=== PATIENT | female | born 1975 | race African-American/Black ===

== ENCOUNTER 2018-03-06 14:42 | Emergency (ER) | payer OTHER, SELFPAY ==
[2018-03-06 14:50] VITALS: BP 142/79; PULSE 75; RESP 16; TEMP 36.7; O2SAT 100
--- NOTE | 2018-03-06 14:52 | ED.CHESTPAIN ---
HPI - Chest Pain General Chief Complaint: Chest Pain Stated Complaint: chest pain x3wks Time Seen by Provider: 03/06/18 14:52 Source: patient Mode of arrival: ambulatory Limitations: no limitations History of Present Illness HPI narrative: 42-year-old healthy female that is a nonsmoker here for complaint of chest pain over the past 3 weeks. She denies any trauma to the chest area. She states she has increased chest pain with movement of the shoulders sometimes. She denies any nausea vomiting. No shortness of breath. No diaphoresis. She was seen at [facility] ER approximately 1 week ago with diagnosis of acid reflux and was placed on omeprazole. She has been using the a map was all and states that her symptoms have not resolved. She denies any others concerns or complaints at this time. She is ambulatory into the emergency room. No acute distress. No cough. Related Data Home Medications Medication Instructions Recorded Confirmed omeprazole 20 mg PO DAILY 03/06/18 03/06/18 Allergies Allergy/AdvReac Type Severity Reaction Status Date / Time naproxen Allergy Mild Rash Verified 03/06/18 14:55 Review of Systems Constitutional Denies chills, Denies fatigue, Denies fever(s), Denies lethargy and Denies weakness Eyes Denies change in vision, Denies eye discharge, Denies irritation and Denies loss of vision ENT Ears, Nose, Mouth, and Throat: Denies change in voice, Denies neck pain and Denies sore throat Cardiovascular Denies dyspnea and Denies dyspnea on exertion Comments: Sternal pain Respiratory Denies cough, Denies dyspnea, Denies dyspnea on exertion and Denies wheezing Gastrointestinal Gastrointestinal: Denies abdominal pain, Denies change in bowel habits, Denies diarrhea, Denies nausea and Denies vomiting Genitourinary Denies hematuria, Denies flank pain, Denies urinary incontinence and Denies urinary urgency Musculoskeletal Denies neck pain Integumentary/Breasts Denies pruritus, Denies erythema, Denies rash and Denies wounds Neurologic Denies loss of vision and Denies weakness Endocrine Denies fatigue and Denies flushing Allergic/Immunologic Denies wheezing [facility] Social History Smoking Status: Never smoker Exam Initial Vital Signs Initial Vital Signs: Vital Signs Temperature 98.1 F 03/06/18 14:50 Pulse Rate 75 03/06/18 14:50 Respiratory Rate 16 03/06/18 14:50 Blood Pressure 142/79 H 03/06/18 14:50 Pulse Oximetry 100 03/06/18 14:50 Const General: cooperative and well developed Nutritional Appearance: well nourished Orientation: alert, awake, oriented x3 and not confused [facility] Mouth: oral mucosae normal, oropharynx normal and moist mucous membranes Eyes Conjunctivae: conjunctivae normal Sclera: sclerae normal Pupils: PERRL EOM: EOM intact bilaterally Neck Neck: normal visual inspection, trachea midline, No lymphadenopathy, No midline deformity and No JVD Lymphatic: No lymphedema Other: T Chest Chest: normal inspection of the chest Other: tenderness on palpation to the anterior chest wall in the sternal area Resp Effort & Inspection: normal respiratory effort, able to speak in complete sentences, no respiratory distress and no use of accessory muscles Auscultation: clear to auscultation bilaterally, no rales, no rhonchi and no wheezes Cardio Rate: regular rate Rhythm: regular rhythm Heart Sounds: no click, no gallops, no murmurs and no rubs Pulses: normal peripheral pulses GI Inspection: non-distended Palpation: soft, no hepatosplenomegaly, No guarding, No pulsatile mass and No tender Auscultation: normal bowel sounds Skin General: no rashes or lesions noted, No jaundice and No petechiae Neuro General: alert, oriented x3, gait normal and no focal motor deficits Speech: speech normal Scores HEART Score Heart Score history: Slightly Suspicious Heart Score EKG: Normal Heart Score Age: < 45 years old Heart Score risk factors: No known risk factors Heart Score troponin: < or = to normal limit Heart Score Total: 0 Course Orders Ordered: ED Orders 03/06/18 15:01 EKG-12 Lead Stat 03/06/18 15:12 XR chest 1V Stat EKG-12 Lead Stat 03/06/18 15:15 Complete Blood Count AUTO DIFF Stat Comprehensive Metabolic Panel Stat Troponin & CK Cardiac Panel Stat Vital Signs - 8 hr 03/06/18 14:50 03/06/18 15:07 03/06/18 15:40 Temperature 98.1 F Pulse Rate 75 71 71 Respiratory Rate 16 18 Blood Pressure 142/79 H Blood Pressure [Left Arm] 122/59 L 115/61 Pulse Oximetry 100 99 100 03/06/18 16:30 03/06/18 17:30 Temperature Pulse Rate 74 71 Respiratory Rate 17 19 Blood Pressure 119/69 Blood Pressure [Left Arm] 116/66 119/69 Pulse Oximetry 99 99 MDM - Chest Pain Lab Data Result diagrams: 03/06/18 15:15 03/06/18 15:15 Lab Results 03/06/18 03/06/18 Range/Units 15:15 15:15 WBC 9.9 (4.5-11.0) X10^3/uL RBC 4.29 (4.0-5.2) X10^6/uL Hgb 11.6 L (12.0-16.0) g/dL Hct 35.0 L (36-46) % MCV 81.6 (80-100) fL MCH 27.1 (26-34) PG MCHC 33.2 (30-36) % RDW 14.8 (11.6-14.8) % Plt Count 261 (150-400) X10^3/uL Neut % (Auto) 71.9 (50-75) % Lymph % (Auto) 19.5 L (25-40) % [place] % (Auto) 7.0 (3-14) % Eos % (Auto) 1.5 L (2-4) % Baso % (Auto) 0.1 (0-2) % Neut # (Auto) 7100 H (5145-2966) /uL Sodium 143 (137-145) mmol/L Potassium 3.8 (3.4-5.1) mmol/L Chloride 103 (98-107) mmol/L Carbon Dioxide 31 (22-32) mmol/L BUN 13 (7-17) mg/dL Creatinine 0.60 (0.52-1.04) mg/dL Estimated GFR > 60.0 (>60) mL/min BUN/Creatinine Ratio 21.7 (6-22) Glucose 127 H (70-100) mg/dL Calcium 10.0 (8.4-10.2) mg/dL Total Bilirubin 0.4 (0.2-1.3) mg/dL AST 28 (14-36) IU/L ALT 30 (9-52) IU/L Alkaline Phosphatase 82 (38-126) U/L Total Creatine Kinase 101 (30-135) U/L CK-MB (CK-2) 0.54 (<2.37) ng/mL CK-MB (CK-2) Rel Index 0.5 L (1.5-5.0) % Troponin I < 0.012 (0.01-0.034) ng/mL Total Protein 7.7 (6.3-8.2) g/dL Albumin 4.1 (3.5-5.0) g/dL Globulin 3.6 (1.7-4.1) g/dL Albumin/Globulin Ratio 1.1 (1.0-2.8) Imaging Data Chest x-ray: Radiologist's impression: [address] [address] XRay Report Signed Patient: Nain Canales#: [id number] : 1975Acct:[id number] Age/Sex: 42 / FDate of Service: 03/06/18 Loc: ED Accession Number: [id number] Procedure: XR chest 1V Ordering Provider: Ronal Galvin PROCEDURE: XR CHEST 1V INDICATIONS: Chest pain TECHNIQUE: One view of the chest was acquired. COMPARISON: None. FINDINGS: Surgical changes and devices: None. Lungs and pleura: No pleural effusions or pneumothorax. Lungs are clear. Mediastinum: Mediastinal contours appear normal. Heart size is normal. Bones and chest wall: No suspicious bony lesions. Overlying soft tissues appear unremarkable. IMPRESSION: No acute pulmonary process. Dictated by: Barbara Trujillo M.D. on 03/06/2018 at 16:39 Approved by: Barbara Trujillo M.D. on 03/06/2018 at 16:40 ECG Data Interpretation: EKG shows normal sinus rhythm with no ST elevation or depression. No ectopy. Ventricular rate of 70. Pr interval of 198. QRS duration of 85. QT of 300. MDM Narrative Medical decision making narrative: EKG shows sinus rhythm with no ST elevation or depression. No ectopy. Chest x-ray was obtained was unremarkable. CBC Chem panel was obtained was also unremarkable. Cardiac enzymes were obtained and were negative. Signs and symptoms presents as chest wall pain/costochondritis. [id number] ibuprofen as needed for any discomfort. Follow up with primary care provider next week for re-evaluation. For any worsening symptoms return to the emergency room. Rest area. Discharge Plan Departure Patient Disposition: Home Clinical Impression: Costalchondritis Discharge Date/Time: 03/06/18 17:31 Interventions: ED Discharge Assessment Last Done: 03/06/18 17:30 Instructions: DI for Costochondritis Activity Restrictions/Additional Instructions: Laboratory results EKG and chest x-ray were obtained today and were negative. Signs and symptoms presents as chest wall pain/costochondritis. Use [id number] ibuprofen as needed for any discomfort. Rest area. Follow up with her primary care provider next week. For any worsening symptoms return to the emergency room. Prescriptions: No Action omeprazole 20 mg capsule,delayed release(DR/EC) 20 mg PO DAILY RF: 0 Referrals: [facility] [Provider Group]
[2018-03-06 15:07] VITALS: BP 122/59; PULSE 71; RESP 17; O2SAT 99
--- NOTE | 2018-03-06 15:12 | DI.RAD.S_ITS ---
PROCEDURE: XR CHEST 1V INDICATIONS: Chest pain TECHNIQUE: One view of the chest was acquired. COMPARISON: None. FINDINGS: Surgical changes and devices: None. Lungs and pleura: No pleural effusions or pneumothorax. Lungs are clear. Mediastinum: Mediastinal contours appear normal. Heart size is normal. Bones and chest wall: No suspicious bony lesions. Overlying soft tissues appear unremarkable. IMPRESSION: No acute pulmonary process. Dictated by: Barbara Trujillo M.D. on 03/06/2018 at 16:39 Approved by: Barbara Trujillo M.D. on 03/06/2018 at 16:40
[2018-03-06 15:24] LABS: Add Manual Diff / Slide Review NO; Basophils Percent Auto 0.1 % (0-2); Eosinophils Percent Auto 1.5 % (2-4); Hemoglobin 11.6 g/dL (12.0-16.0); Lymphocytes Percent Auto 19.5 % (25-40); Mean Corpuscular HGB Conc 33.2 % (30-36); Mean Corpuscular Hemoglobin 27.1 PG (26-34); Mean Corpuscular Volume 81.6 fL (80-100); Neutrophils Absolute Auto 7100 /uL (3000-5900); Neutrophils Percent Auto 71.9 % (50-75); Platelet Count 261 X10^3/uL (150-400); Red Blood Cell Count 4.29 X10^6/uL (4.0-5.2); Red Cell Distribution Width 14.8 % (11.6-14.8); White Blood Cell Count 9.9 X10^3/uL (4.5-11.0)
[2018-03-06 15:36] LABS: Alanine Aminotransferase 30 IU/L (9-52); Albumin 4.1 g/dL (3.5-5.0); Albumin Globulin Ratio 1.1 (1.0-2.8); Alkaline Phosphatase 82 U/L (38-126); Aspartate Aminotransferase 28 IU/L (14-36); BUN Creatinine Ratio 21.7 (6-22); Bilirubin Total 0.4 mg/dL (0.2-1.3); Blood Urea Nitrogen 13 mg/dL (7-17); Carbon Dioxide 31 mmol/L (22-32); Chloride 103 mmol/L (98-107); Creatine Kinase 101 U/L (30-135); Estimated Glomerular Filt Rate > 60.0 mL/min (>60); Globulin 3.6 g/dL (1.7-4.1); Glucose 127 mg/dL (70-100); HEMOLYSIS < 15 (0-50); Potassium 3.8 mmol/L (3.4-5.1); Sodium 143 mmol/L (137-145); Total Protein 7.7 g/dL (6.3-8.2)
[2018-03-06 15:40] VITALS: BP 115/61; PULSE 71; RESP 18; O2SAT 100
[2018-03-06 15:52] LABS: CKMB % Relative Index 0.5 % (1.5-5.0); Creatine Kinase MB 0.54 ng/mL (<2.37); Troponin I < 0.012 ng/mL (0.01-0.034)
[2018-03-06 16:30] VITALS: BP 116/66; PULSE 74; RESP 17; O2SAT 99
[2018-03-06 17:30] VITALS: BP 119/69; PULSE 71; RESP 19; O2SAT 99
== END 2018-03-06 17:31 | disposition home or self-care (01) ==
PROVIDERS: Emergency Provider Nurse Practitioner Family
DX: M94.0 Chondrocostal junction syndrome [Tietze] (principal)
CPT/HCPCS: 36591; 71045; 80053; 82550; 82553; 84484; 85025; 93005; 93041; 99283; 99285